=== PATIENT | female | born 1960 | race Two or more races ===

== ENCOUNTER 2019-12-07 11:15 | Outpatient (CLI) | payer OTHER, SELFPAY ==
--- NOTE | ~2019-12-07 | XR_ITS ---
EXAMINATION: XR chest 2V DATE: 12/07/2019 11:41 INDICATION: Cough. Right rib pain. TECHNIQUE: Frontal and lateral views of the chest were obtained. COMPARISON: None. FINDINGS: There is mild atelectasis in left lower lung zone. No pleural effusion or pneumothorax. The heart size is normal. IMPRESSION: 1. Mild atelectasis in left lower lung zone. Reviewed, dictated and finalized at location A. HMALLOW RUNNER
== END 2019-12-07 11:16 | disposition home or self-care (01) ==
PROVIDERS: PCP Emergency Medicine; Visit Provider Emergency Medicine
DX: R05 Cough (principal); R07.81 Pleurodynia; R91.8 Other nonspecific abnormal finding of lung field
CPT/HCPCS: 71046

== ENCOUNTER 2020-03-05 12:03 | Outpatient (CLI) | payer OTHER, SELFPAY ==
--- NOTE | ~2020-03-05 | XR_ITS ---
EXAMINATION: XR thoracic spine 3V EXAM DATE: 03/05/2020 12:52 INDICATION: Upper back pain. TECHNIQUE: Frontal and lateral projections of the thoracic spine as well as lateral swimmers projecti on of the upper thoracic spine for interpretation. There is no prior study for comparison. FINDINGS: There is minimal thoracic disc disease. No endplate erosive change. The vertebral bodies a re aligned in the AP dimension. Vertebral body and disc heights are well-maintained. Paraspinal soft tissue is unremarkable. Minimal thoracolumbar curvature, could be positional or scoliosis. IMPRESSION: Minimal lumbar spondylosis. Reviewed, dictated and finalized at location A. IMPRESSION: Minimal lumbar spondylosis.
[2020-03-05 13:32] LABS: Hematocrit 43.1 % (37.0-47.0); Hemoglobin 14.4 g/dL (12.0-15.0); Mean Corpuscular HGB Conc 33.4 g/dl (32-36); Mean Corpuscular Hemoglobin 30.3 pg (26-34); Mean Corpuscular Volume 90.5 fl (80-100); Mean Platelet Volume 11.8 fl (7.4-10.4); Platelet Count Result 207 k/mm3 (150-375); Red Blood Count 4.76 M/mm3 (4.2-5.4); Red Cell Distribution Width 12.5 % (11.5-14.5); White Blood Count 4.7 K/mm3 (4.5-10.0)
[2020-03-05 13:45] LABS: Add Urine Microscopic? YES; Appearance Urine Clear (Clear); Bilirubin Urine Negative (Negative); Blood Urine 1+ (Negative); Color Urine Straw (Yellow); Glucose Urine UA Negative (Negative); Ketones Urine Negative (Negative); Leukocyte Esterase Ur Negative LEU/UL (NEGATIVE); Mucus Urine Rare /lpf; Nitrate Urine Negative (Negative); Protein Urine Negative (Negative); Squamous Epithelial Cell Urine Few /hpf (Few); Urobilinogen Urine Negative mg/dL (<2.0); WBC Urine 0-3 /hpf (0-3)
[2020-03-05 15:34] LABS: Free T4 Free Thyroxine 0.86 ng/mL (0.78-2.19)
== END 2020-03-05 12:04 | disposition home or self-care (01) ==
LOC: ANHIMG 12:22
PROVIDERS: PCP Emergency Medicine; Visit Provider Emergency Medicine
DX: R31.9 Hematuria, unspecified (principal); M54.6 Pain in thoracic spine; F41.9 Anxiety disorder, unspecified; M47.816 Spondylosis without myelopathy or radiculopathy, lumbar region
CPT/HCPCS: 36415; 72072; 81001; 82306; 84439; 84443; 85027; 88104; 88108

== ENCOUNTER 2020-03-08 09:14 | Outpatient (CLI) | payer OTHER, SELFPAY ==
--- NOTE | ~2020-03-08 | MM_ITS ---
EXAMINATION: MM screening [place] BI w [place] HISTORY: Screening mammogram TECHNIQUE: Craniocaudal and mediolateral oblique 3-D tomosynthesis images were obtained and synthetic 2-D images were generated. CAD analysis was submitted and interpreted. COMPARISON: No prior mammogram is available for comparison at this institution. BREAST PARENCHYMAL COMPOSITION: FINDINGS: There is no evidence of suspicious mass, calcification, or architectural distortion to sugg est malignancy in either breast. There has been no suspicious interval change. IMPRESSION: 1. No mammographic evidence of malignancy. 2. Recommend routine screening mammography in one year. BI-RADS Category 1: Negative Reviewed, dictated and finalized at location A.
== END 2020-03-08 09:15 | disposition home or self-care (01) ==
LOC: ANHIMG 09:17
PROVIDERS: PCP Emergency Medicine; Visit Provider Emergency Medicine
DX: Z12.31 Encounter for screening mammogram for malignant neoplasm of breast (principal)
CPT/HCPCS: 77063; 77067

== ENCOUNTER 2020-04-16 14:20 | Outpatient (CLI) | payer OTHER, SELFPAY ==
--- NOTE | ~2020-04-16 | US_ITS ---
EXAMINATION: US renal BI EXAM DATE: 04/16/2020 15:12 INDICATION: Microscopic hematuria. TECHNIQUE: Multiple grayscale and Doppler images of the kidneys were obtained (by a technologist who performed the scan) and subsequently reviewed. There is no prior study for comparison. FINDINGS: Right kidney: There is normal contour and echogenicity. It measures 10.5 x 5.0 x 5.1 centimeters. T here are no focal renal lesions identified. There is no hydronephrosis. Left kidney: There is normal contour and echogenicity. It measures 12.2 x 5.0 x 5.7 centimeters. Th ere are no focal renal lesions identified. There is mild left hydronephrosis. Bladder unremarkable. Bilateral ureteral jets confirmed excluding ureteral obstruction. IMPRESSION: Mild left hydronephrosis. Reviewed, dictated and finalized at location B. IMPRESSION: Mild left hydronephrosis.
== END 2020-04-16 14:21 | disposition home or self-care (01) ==
PROVIDERS: PCP Emergency Medicine; Visit Provider Emergency Medicine
DX: R31.29 Other microscopic hematuria (principal); N13.30 Unspecified hydronephrosis
CPT/HCPCS: 76775

== ENCOUNTER 2020-04-25 01:46 | Emergency (ER) | payer OTHER, SELFPAY ==
--- NOTE | ~2020-04-25 | CT_ITS ---
EXAMINATION: CT abdomen pelvis w con DATE: 04/25/2020 02:47 INDICATION: Left flank pain. Left upper abdominal pain. TECHNIQUE: Computed tomography (CT) of the abdomen and pelvis was performed with 100 mL Omnipaque-350 intravenous contrast. Automated exposure control and iterative reconstruction technique were employe d. The dose-length product was 1135.29 mGy-cm. COMPARISON: None FINDINGS: Dependent atelectasis in the bilateral lower lobes. Cardiomegaly. No pericardial or pleural effusion. Small sliding-type hiatal hernia. Diffuse hepatic steatosis. Gallbladder, spleen, pancreas and bilat eral adrenal glands are normal. Lobular fluid density structures in the bilateral renal román and favo r peripelvic cysts over hydronephrosis. Symmetric renal parenchymal enhancement with no evident uroli thiasis or hydronephrosis. Appendix is normal. No abnormal bowel wall thickening or obstruction. Ther e are a few scattered colonic diverticula without adjacent inflammatory change to suggest diverticuli tis. 1.4 cm thin-walled macroscopic fat attenuation lesion along the sigmoid colon which could repres ent a small lipoma, epiploic appendage or small focus of fat necrosis, all likely chronic given the a bsence of surrounding inflammatory stranding. Decompressed bladder, anteverted uterus and bilateral a dnexa are unremarkable. Mild thoracolumbar levocurvature with mild spondylosis. Bilateral L5 pars int erarticularis defects with 4 mm retrolisthesis L5 on S1. IMPRESSION: 1. Fluid density structures at the bilateral renal román and favor peripelvic cysts over hydronephrosi s. No acute intra-abdominal/pelvic process. 2. Small sliding-type hiatal hernia. 3. Mild cardiomegaly. 4. Diffuse hepatic steatosis. Reviewed, dictated and finalized at location A. IMPRESSION: 1. Fluid density structures at the bilateral renal román and favor peripelvic cy sts over hydronephrosis. No acute intra-abdominal/pelvic process. 2. Small sliding-type hiatal hernia. 3. Mild cardiomegaly. 4. Diffuse hepatic steatosis.
[2020-04-25 01:50] VITALS: BP 152/110; PULSE 68; RESP 20; TEMP 35.9; O2SAT 100
--- NOTE | 2020-04-25 01:52 | ED.FEMALEGU ---
HPI - Female Genitourinary General Chief complaint: Urogenital-Female Stated complaint: Flank Pain Time Seen by Provider: 04/25/20 01:51 Source: patient and family Mode of arrival: ambulatory Limitations: language barrier (Daughter acting as application processor) History of Present Illness HPI Narrative: Patient is a 60 year-old female who presents for evaluation of left-sided abdominal pain and left flank pain. Patient has had 3 days of worsening dysuria, left flank pain, described as sharp, aching in nature. No chest pain, shortness of breath or cough. No vaginal bleeding or discharge. No nausea or vomiting. Patient denies fever or chills. Patient has no medical problems no history of surgeries. No known history of kidney stones. No recent falls or trauma. Related Data Allergies Allergy/AdvReac Type Severity Reaction Status Date / Time No Known Allergies Allergy Verified 04/25/20 03:47 Review of Systems Review of Systems: Narrative: CONSTITUTIONAL: Denies fever, chills ENT: Denies rhinorrhea, congestion, sore throat CARDIOVASCULAR: Denies chest pain RESPIRATORY: Denies cough or dyspnea. GASTROINTESTINAL: Reports left upper quadrant abdominal pain, denies nausea, vomiting or diarrhea GENITOURINARY: Reports dysuria, denies hematuria SKIN: Denies rash or itching. MUSCULOSKELETAL: Reports left flank pain NEUROLOGIC: Denies headache, numbness, or weakness. [facility] Past Medical History Medical History (Updated 04/25/20 @ 03:47 by Kyara Garner MD) No pertinent past medical history Surgical History Surgical History (Updated 04/25/20 @ 02:09 by Kyara Garner MD) No pertinent past surgical history Social History Social History (Updated 04/25/20 @ 02:09 by Kyara Garner MD) Smoking status: Never smoker Alcohol intake: never Substance use: never Living arrangements: with family Gender identity (if verbalized by the patient): Female Exam Narrative: Exam Narrative: GENERAL: Awake, alert, conversant, uncomfortable. HEAD: Normocephalic, atraumatic. EYES: PERRLA and EOMI. ENT: Nares clear, no rhinorrhea or epistaxis. Mucous membranes moist. NECK: Supple. CHEST: No respiratory distress, breathing even and non labored HEART: Regular rate, sinus rhythm ABDOMEN:Non distended, non tender, left upper quadrant tenderness Thorax: Left flank tenderness EXTREMITIES: Normal range of motion. No edema. SKIN: Warm, dry, no rash. NEURO:No focal deficits. Alert and oriented x3 Course Vital Signs Vital signs: Vital Signs Temperature 35.9 C L 04/25/20 01:50 Pulse Rate 68 04/25/20 01:50 Respiratory Rate 04/25/20 01:50 Blood Pressure 152/110 H 04/25/20 01:50 Pulse Oximetry 100 04/25/20 01:50 Temperature 35.9 C L 04/25/20 01:50 Pulse Rate 68 04/25/20 01:50 Respiratory Rate 04/25/20 01:50 Blood Pressure 152/110 H 04/25/20 01:50 Pulse Oximetry 100 04/25/20 01:50 MDM - Female Genitourinary MDM Narrative Medical decision making narrative: Patient presented for evaluation of abdominal pain and left flank pain. Absolutely reporting no chest pain, shortness of breath, pleuritic type pain. No rash or indications of shingles. No neurological deficits to be suggestive of a spinal abnormality. Patient is afebrile without severe infectious type symptoms. Laboratory work-up is reassuring. No severe leukocytosis. No indications of a urinary tract infection. No acute kidney injury. CT scan shows no acute intra-abdominal abnormality such as nephrolithiasis. No findings of pyelonephritis or renal abscess. Patient does have very mild hydronephrosis and possible concern for renal cyst. At this point, does not appear to be emergent etiology, and patient's pain is controlled at the time of reassessment. Patient's abdomen is soft without significant pain or signs of surgical abdomen on serial exams. Lab and imaging evaluations are reviewed and patient is felt to be a reasonable candidate for
[2020-04-25 02:13] LABS: Basophils Percent Auto 0.5 % (0.2-1.2); Eosinophils Absolute Auto 0.1 K/mm3 (0-0.3); Eosinophils Percent Auto 1.4 % (0-4.4); Hematocrit 43.7 % (37.0-47.0); Hemoglobin 14.5 g/dL (12.0-15.0); Immature Granulocyte Absolute 0.02 K/mm3 (0.00-0.031); Immature Granulocyte Percent A 0.3 % (0-0.5); Lymphocytes Absolute Auto 3.33 K/mm3 (0.9-3.2); Lymphocytes Percent Auto 43.8 % (18.3-44.2); Mean Corpuscular HGB Conc 33.2 g/dl (32-36); Mean Corpuscular Hemoglobin 29.6 pg (26-34); Mean Corpuscular Volume 89.2 fl (80-100); Mean Platelet Volume 11.5 fl (7.4-10.4); Monocytes Absolute Auto 0.5 K/mm3 (0.1-0.6); Monocytes Percent Auto 5.9 % (2.6-8.5); Neutrophils Absolute Auto 3.7 K/mm3 (1.3-6.7); Neutrophils Percent Auto 48.1 % (45.5-73.1); Platelet Count Result 222 k/mm3 (150-375); Red Cell Distribution Width 12.2 % (11.5-14.5); White Blood Count 7.6 K/mm3 (4.5-10.0)
[2020-04-25] MEDS: SODIUM CHLORIDE 0.9% IV 1,000 ML 999 ML IV CONT (02:19)
[2020-04-25] MEDS: MORPHINE SULFATE 4 MG/ML INJ IV PUSH (02:19)
[2020-04-25] MEDS: ONDANSETRON INJ 4 MG/2 ML VIAL IV PUSH (02:19)
[2020-04-25 02:24] LABS: Blood Urea Nitrogen 19 mg/dL (7-17); Estimated Glomerular Filt Rate > 60; Glucose 104 mg/dL (65-105)
[2020-04-25 02:25] LABS: Calcium 9.3 mg/dL (8.4-10.2); Carbon Dioxide 24 mmol/L (22-30); Potassium 4.1 mmol/L (3.4-5.0); Sodium 137 mmol/L (137-145)
[2020-04-25 02:26] LABS: Add Urine Microscopic? YES; Appearance Urine Clear (Clear); Bacteria Urine Trace /hpf; Bilirubin Urine Negative (Negative); Blood Urine Negative (Negative); Color Urine Yellow (Yellow); Glucose Urine UA Negative (Negative); Ketones Urine Negative (Negative); Leukocyte Esterase Ur Trace LEU/UL (Negative); Mucus Urine Rare /lpf; Nitrate Urine Negative (Negative); Protein Urine Negative (Negative); RBC Urine 0-2 /hpf (0-2); Squamous Epithelial Cell Urine Occasional /hpf (Few); Urobilinogen Urine Negative mg/dL (<2.0)
[2020-04-25 02:35] LABS: Alanine Aminotransferase 25 U/L (4-35); Albumin Level 4.4 g/dL (3.5-5.1); Alkaline Phosphatase 104 U/L (38-126); Aspartate Amino Transferase 28 U/L (14-36); Bilirubin,Total 0.5 mg/dL (0.2-1.3); Chloride 106 mmol/L (98-107); Lipase 99 U/L (23-300)
[2020-04-25 03:05] VITALS: BP 138/82; PULSE 56; RESP 18; O2SAT 100
[2020-04-25 03:49] VITALS: BP 149/90; PULSE 50; RESP 18; O2SAT 100
[2020-04-25 04:01] VITALS: BP 137/88; PULSE 55; RESP 19; TEMP 36.8; O2SAT 100
== END 2020-04-25 04:03 | disposition home or self-care (01) ==
PROVIDERS: Emergency Provider Emergency Medicine; PCP Emergency Medicine
DX: R10.9 Unspecified abdominal pain (principal)
CPT/HCPCS: 36415; 74177; 80053; 81001; 83690; 85025; 96361; 96374; 96375; 99284; J2270; J2405; J7030; Q9967

== ENCOUNTER 2020-04-27 18:07 | Observation (INO) | payer OTHER, SELFPAY ==
--- NOTE | ~2020-04-27 | XR_ITS ---
XR abdomen/kub 1V DATE: 04/28/2020 12:25 INDICATION: Assessment for residual contrast material in the kidneys TECHNIQUE: Portable supine AP view COMPARISON: 04/27/2020 CT abdomen pelvis with IV contrast material FINDINGS: There is no residual contrast material evident in the urinary tracts. Nonspecific bowel gas pattern without evidence of obstruction. The psoas shadows are intact. No visceromegaly is evident. IMPRESSION: No residual contrast material in the urinary tracts Reviewed, dictated and finalized at Location A. Reviewed, dictated and finalized at location A.
--- NOTE | ~2020-04-27 | CT_ITS ---
EXAMINATION: CT abdomen pelvis w con DATE: 04/27/2020 22:09 INDICATION: Abdominal pain TECHNIQUE: Computed tomography (CT) of the abdomen and pelvis was performed with 100 mL Omnipaque-350 intravenous contrast. Automated exposure control and iterative reconstruction technique were employe d. The dose-length product was 1155.55 mGy-cm. COMPARISON: 04/25/2020 FINDINGS: Mild discoid atelectasis at the lingula and mild dependent atelectasis in the bilateral lower lobes. Cardiomegaly. No pericardial or pleural effusion. Small sliding-type hiatal hernia. Diffuse hepatic s teatosis with more focal fat at the ligamentum teres. Gallbladder, spleen, pancreas and bilateral adr enal glands are normal. Symmetric renal parenchymal enhancement with multiple bilateral peripelvic cy sts. Bowels including the appendix are normal. Again seen is a 1.4 cm thin-walled macroscopic fat att enuation lesion/inflammatory stranding along the sigmoid colon which could represent a small lipoma, epiploic appendage or small focus of fat necrosis. Bladder, anteverted uterus and bilateral adnexa ar e unremarkable. Small amount of ascites in the cul-de-sac. Small bilateral fat-containing inguinal he rnias. No pathologically enlarged abdominal or pelvic lymphadenopathy. Bilateral L5 pars intra-articu lar is defects with 4 mm anterolisthesis L5 on S1. IMPRESSION: 1. Small amount of ascites in the cul-de-sac. No other acute intra-abdominal/pelvic process. 2. Small sliding-type hiatal hernia. 3. Cardiomegaly. 4. Diffuse hepatic steatosis. 5. Small bilateral fat-containing inguinal hernias. Reviewed, dictated and finalized at location A. IMPRESSION: 1. Small amount of ascites in the cul-de-sac. No other acute intra-abdominal/pe lvic process. 2. Small sliding-type hiatal hernia. 3. Cardiomegaly. 4. Diffuse hepatic steatosis. 5. Small bilateral fat-containing inguinal hernias.
--- NOTE | ~2020-04-27 | CT_ITS ---
EXAMINATION: CT abdomen pelvis wo con DATE: 04/29/2020 17:38 INDICATION: Left flank pain. Kidney stones. TECHNIQUE: Computed tomography (CT) of the abdomen and pelvis was performed without intravenous contr ast. The dose-length product was 917.42 mGy-cm. Automated exposure control and iterative reconstructi on technique were employed. COMPARISON: CT dated 04/27/2020 FINDINGS: Heart size normal. Small pleural effusions. Fatty alteration of the liver. There is hyperde nse material in the gallbladder, likely carious excretion of contrast. There are parapelvic cyst in t he left kidney. The liver, spleen, pancreas, adrenal glands and right kidney are unremarkable. No renal/ureteral ston es. There are fat-containing inguinal hernias. Nonobstructive bowel gas pattern. No abnormal pelvic m asses or fluid collections. Small fat-containing umbilical hernia. Bilateral L5 pars interarticularis defects with grade 1 spondylolisthesis. No abdominal or pelvic lymphadenopathy. 1.4 cm thin-walled m acroscopic fat attenuation lesion contiguous with the sigmoid colon which could represent a small lip latonya or epiploic appendage. IMPRESSION: 1. No acute abdominal abnormality. 2: Small pleural effusions. Reviewed, dictated and finalized at location A.
[2020-04-27 18:18] VITALS: PULSE 72; RESP 20; TEMP 36.6; O2SAT 100
--- NOTE | 2020-04-27 19:19 | ECG_ITS ---
Measurements Intervals [place] Rate: 53 P: 20 MS: 188 QRS: -24 QRSD: 114 T: 15 QT: 385 QTc: 364 Interpretive Statements SINUS BRADYCARDIA INTRAVENTRICULAR CONDUCTION DELAY DELAYED PRECORDIAL R/S TRANSITION VOLTAGE CRITERIA FOR LVH NONSPECIFIC T-WAVE ABNORMALITY- ANTEROLAT/INF LEADS BORDERLINE ECG Electronically Signed On 04-28-2020 6:55:16 CDT by Herrera Rodriguez D.O.
--- NOTE | 2020-04-27 19:19 | ED.BACK ---
HPI - Back Pain/Injury General Chief Complaint: Back Pain/Injury Stated Complaint: left flank pain Time Seen by Provider: 04/27/20 19:14 Source: RN notes reviewed and old records reviewed History of Present Illness HPI Narrative: Patient presents emergency department from home for flank pain. Patient states she has been having pain for the past 5 days. The pain is located left flank and radiates around the left upper and lower abdomen. Pain is described as sharp and stabbing. Notes mild associated nausea. Denies any fevers or chills chest pain shortness of breath vomiting diarrhea or any other symptoms. The patient has been seen in our emergency department 2 days ago as well as [facility] yesterday and [facility] today with negative work-ups patient has been taking Percocet at home with minimal relief Related Data Allergies Allergy/AdvReac Type Severity Reaction Status Date / Time No Known Allergies Allergy Verified 04/25/20 03:47 Review of Systems Review of Systems: Narrative: Gen.: Denies fevers or chills ENT: Denies congestion Respiratory: Denies shortness of breath or cough CV: Denies chest pain or palpitations GI: HPI denies burning, urgency, frequency or hematuria Musculoskeletal: Denies back pain or muscle pain Neuro: Denies numbness, tingling, weakness or focal weakness Skin: Denies rash Except as documented, all other systems reviewed and negative [facility] Past Medical History Medical History No pertinent past medical history Surgical History Surgical History (Updated 04/25/20 @ 02:09 by Kyara Garner MD) No pertinent past surgical history Social History Social History Smoking status: Never smoker Alcohol intake: never Substance use: never Gender identity (if verbalized by the patient): Female Exam Narrative: Exam Narrative: APPEARANCE: No acute distress, nontoxic, resting in bed HEENT: Normocephalic, atraumatic, OMM RESPIRATORY: No respiratory distress, clear to auscultation bilaterally with no rhonchi wheezing or rales CARDIOVASCULAR: RRR s murmur ABDOMINAL: Soft, nondistended, tender palpation left upper quadrant left lower quadrant, no tenderness in right upper quadrant right lower quadrant, no rebound or guarding, left flank tenderness no overlying rash MUSCULOSKELETAl: Moves all extremities. No clubbing, cyanosis or edema. NEURO: Awake and alert. Following commands, speech normal, no focal deficits SKIN:: Warm, dry. Normal Color PSYCHIATRIC: Normal affect/mood Course Course Emergency Course: Patient continues to have pain in the emergency department pain was improved with morphine and return given GI cocktail with no resolution additional morphine given. This time with 4 ED visits over the past 5 days will admit for further work-up. On repeat exam continues to remain tender in the left upper and lower quadrant Dr. Thompson presentation work-up. Agrees with admission at this time request patient remain n.p.o. Discussed with patient and family results of workup and diagnosis. Discussed need for admission. Patient and family understand and agree to current treatment plan Vital Signs Vital signs: Vital Signs Temperature 97.9 F 04/27/20 18:18 Pulse Rate 72 04/27/20 18:18 Respiratory Rate 20 04/27/20 18:18 Pulse Oximetry 100 04/27/20 18:18 Temperature 97.9 F 04/27/20 18:18 Pulse Rate 96 04/27/20 21:40 Respiratory Rate 20 04/27/20 21:40 Blood Pressure 158/87 H 04/27/20 21:40 Pulse Oximetry 99 04/27/20 21:40 MDM - Back Pain/Injury Lab Data Result diagrams: 04/27/20 19:27 04/27/20 19:27 Labs: Lab Results 04/27/20 04/27/20 04/27/20 Range/Units 19:27 19:27 20:46 WBC 6.5 (4.5-10.0) K/mm3 RBC 4.37 (4.2-5.4) M/mm3 Hgb 13.0 (12.0-15.0) g/dL Hct 39.4 (37.0-47.0
[2020-04-27 19:33] LABS: Basophils Percent Auto 0.3 % (0.2-1.2); Eosinophils Absolute Auto 0.1 K/mm3 (0-0.3); Eosinophils Percent Auto 0.8 % (0-4.4); Hematocrit 39.4 % (37.0-47.0); Immature Granulocyte Absolute 0.01 K/mm3 (0.00-0.031); Immature Granulocyte Percent A 0.2 % (0-0.5); Lymphocytes Absolute Auto 1.86 K/mm3 (0.9-3.2); Lymphocytes Percent Auto 28.4 % (18.3-44.2); Mean Corpuscular Hemoglobin 29.7 pg (26-34); Mean Corpuscular Volume 90.2 fl (80-100); Mean Platelet Volume 11.1 fl (7.4-10.4); Monocytes Absolute Auto 0.5 K/mm3 (0.1-0.6); Monocytes Percent Auto 7.3 % (2.6-8.5); Neutrophils Absolute Auto 4.1 K/mm3 (1.3-6.7); Platelet Count Result 180 k/mm3 (150-375); Red Blood Count 4.37 M/mm3 (4.2-5.4); White Blood Count 6.5 K/mm3 (4.5-10.0)
[2020-04-27] MEDS: MORPHINE SULFATE 4 MG/ML INJ IV PUSH (19:35)
[2020-04-27] MEDS: SODIUM CHLORIDE 0.9% IV 1,000 ML 999 ML IV CONT (19:35)
[2020-04-27 19:45] LABS: Alanine Aminotransferase 21 U/L (4-35); Alkaline Phosphatase 63 U/L (38-126); Aspartate Amino Transferase 22 U/L (14-36); Bilirubin,Total 0.5 mg/dL (0.2-1.3); Blood Urea Nitrogen 11 mg/dL (7-17); Calcium 9.4 mg/dL (8.4-10.2); Carbon Dioxide 26 mmol/L (22-30); Chloride 104 mmol/L (98-107); Estimated CRCL calculation 84 ml/min; Estimated Glomerular Filt Rate > 60; Glucose 134 mg/dL (65-105); Lipase 57 U/L (23-300); Potassium 3.5 mmol/L (3.4-5.0); Sodium 135 mmol/L (137-145)
[2020-04-27 20:56] LABS: Add Urine Microscopic? YES; Appearance Urine Clear (Clear); Bacteria Urine Trace /hpf; Bilirubin Urine Negative (Negative); Blood Urine 1+ (Negative); Color Urine Straw (Yellow); Glucose Urine UA Negative (Negative); Ketones Urine Negative (Negative); Leukocyte Esterase Ur Trace LEU/UL (Negative); Nitrate Urine Negative (Negative); Protein Urine Negative (Negative); RBC Urine 0-2 /hpf (0-2); Squamous Epithelial Cell Urine Occasional /hpf (Few); Urobilinogen Urine Negative mg/dL (<2.0); WBC Urine 0-3 /hpf
[2020-04-27 21:40] VITALS: BP 158/87; PULSE 96; RESP 20; O2SAT 99
[2020-04-27] MEDS: MORPHINE SULFATE 2 MG/ML INJ IV PUSH (23:27)
[2020-04-27 23:58] VITALS: BP 147/91; PULSE 56; O2SAT 98
[2020-04-28 00:19] VITALS: BP 144/87; PULSE 89; RESP 15; O2SAT 97
--- NOTE | 2020-04-28 00:37 | ADMGEN ---
This patient, Georgina Correa, was admitted to [address] [facility] Surg Room 300-01. Patient/family oriented to hospital policies and general routines including ID bracelet, bed and alarms, visiting hours, pain management, procedures, bathroom and other care routines, personal items, smoking policy, room service/diet, and visiting hours. Valuables list has been completed. Information on how to activate the Rapid Response Team has been discussed. Patient/Family are encouraged to report perceived risks to care and to ask questions if they do not understand what they are told or what they should do.
[2020-04-28] MEDS: MORPHINE SULFATE 4 MG/ML INJ IV PUSH ×5 (00:45→22:06)
[2020-04-28] MEDS: SODIUM CHLORIDE 0.9% IV 1,000 ML 125 ML IV CONT ×3 (00:45→18:58)
[2020-04-28 00:56] VITALS: BP 155/86; PULSE 62; RESP 16; TEMP 36.7; O2SAT 98; BMI 31.9
[2020-04-28 06:00] VITALS: BP 147/73; PULSE 55; RESP 16; TEMP 36.6; O2SAT 98
--- NOTE | 2020-04-28 06:16 | PM.IMHP ---
H&P: HPI History of Present Illness Chief complaint: Intractable abdominal pain, L. flank pain Narrative: This is a pleasant 60 year old Irish female with known past medical history significant for renal stones who presented to the hospital for a return visit for severe left flank pain radiating down to her groin as well as dysuria and suprapubic tenderness that started 6 days ago. Tonight marked the patient's 4th ER visit for the same complaint over this past week. She has been seen in our ER twice now, [facility], and [facility]. Associated symptoms include nausea. She has not had any vomiting, fevers, chills, shortness of breath, diarrhea, hematuria, rectal bleeding or LE swelling. Ultrasound performed on 04/16/2020 demonstrated mild left sided hydronephrosis. CT scan Abd/pelvis from 04/25/2020 demonstrated fluid density structures at the bilateral renal román and favor peripelvic cysts over hydronephrosis. The patient was treated with various doses of Narcotic medications and admitted to the hospital for intractable left flank pain. She has no other complaints. Review of Systems Review of Systems: All systems reviewed & are unremarkable except as noted in HPI and below PMFSH Past Medical History Medical History (Updated 04/28/20 @ 19:17 by Sam Thompson MD) No pertinent past medical history Renal stones Surgical History Surgical History No pertinent past surgical history Social History Social History Smoking status: Never smoker Alcohol intake: never Substance use: never Gender identity (if verbalized by the patient): Female Spiritual care concerns: No Comments past Family medical history is reviewed with the patient and noncontributory. Meds Home Medications and Allergies Home Medications Medication Instructions Recorded Confirmed Type oxycodone-acetaminophen 1 tablet PO Q6H PRN #9 tablet 04/25/20 04/28/20 Rx Allergies Allergy/AdvReac Type Severity Reaction Status Date / Time No Known Allergies Allergy Verified 04/25/20 03:47 Vital Signs Vital Signs - 24 hr 04/27/20 18:18 04/27/20 21:40 04/27/20 23:58 Temperature 36.6 C Pulse Rate 72 96 56 L Respiratory Rate 20 20 Blood Pressure 158/87 H 147/91 H Pulse Oximetry 100 99 98 04/28/20 00:19 04/28/20 00:56 Temperature 36.7 C Pulse Rate 89 62 Respiratory Rate 15 16 Blood Pressure 144/87 H 155/86 H Pulse Oximetry 97 98 Exam Const: General: cooperative, alert, awake and in distress moderate Nutritional Appearance: obese Orientation/consciousness: patient oriented x3 HENMT: Head: normal to inspection General nose exam: Normal external nose present Face and sinus: normal facial exam Mouth: Yes Normal oral and palatal mucosa present and Yes oropharynx normal Eyes: Pupils: Equal, round and reactive pupils present EOM: EOMs intact bilaterally Neck: Neck: supple and no JVD Thyroid: thyroid normal Lymphatic: lymphadenopathy not noted Resp: Effort & Inspection: normal respiratory effort Auscultation: clear to auscultation bilaterally Cardio: Rate: regular rate Rhythm: regular rhythm Heart sounds: no murmurs GI: Inspection: normal to inspection GI Palp: Yes abdominal tenderness (Left flank tenderness w/ palpation++ ) Auscultation: normal bowel sounds Back/Spine/Pelvis: Back: CVA tenderness (Left sided++ ) Skin: General skin exam: normal color and no rashes or lesions noted Neuro: General: patient oriented x3 Cranial nerves: Yes CN's II-XII intact bilaterally and Yes Equal, round and reactive pupils present Speech: normal speech Motor exam (neuro): 5/5 motor strength present throughout Sensory Exam: normal sensation Extrem: General: normal to inspection and no edema Psych: Mental Status: mental status grossly normal Affect: normal affect H&P: Results Labs Labs: Short CBC
[2020-04-28 06:30] LABS: Basophils Percent Auto 0.4 % (0.2-1.2); Eosinophils Absolute Auto 0.1 K/mm3 (0-0.3); Eosinophils Percent Auto 1.1 % (0-4.4); Hematocrit 39.8 % (37.0-47.0); Hemoglobin 13.1 g/dL (12.0-15.0); Immature Granulocyte Absolute 0.01 K/mm3 (0.00-0.031); Immature Granulocyte Percent A 0.2 % (0-0.5); Lymphocytes Absolute Auto 2.04 K/mm3 (0.9-3.2); Lymphocytes Percent Auto 37.2 % (18.3-44.2); Mean Corpuscular HGB Conc 32.9 g/dl (32-36); Mean Corpuscular Hemoglobin 29.6 pg (26-34); Mean Platelet Volume 11.1 fl (7.4-10.4); Monocytes Absolute Auto 0.4 K/mm3 (0.1-0.6); Neutrophils Absolute Auto 2.9 K/mm3 (1.3-6.7); Neutrophils Percent Auto 53.1 % (45.5-73.1); Platelet Count Result 182 k/mm3 (150-375); Red Blood Count 4.42 M/mm3 (4.2-5.4); Red Cell Distribution Width 12.1 % (11.5-14.5); White Blood Count 5.5 K/mm3 (4.5-10.0)
[2020-04-28 06:40] LABS: Alanine Aminotransferase 21 U/L (4-35); Albumin Level 3.9 g/dL (3.5-5.1); Alkaline Phosphatase 64 U/L (38-126); Aspartate Amino Transferase 22 U/L (14-36); Bilirubin,Total 0.5 mg/dL (0.2-1.3); Blood Urea Nitrogen 7 mg/dL (7-17); Calcium 8.9 mg/dL (8.4-10.2); Carbon Dioxide 28 mmol/L (22-30); Chloride 105 mmol/L (98-107); Estimated CRCL calculation 86 ml/min; Estimated Glomerular Filt Rate > 60; Glucose 97 mg/dL (65-105); Potassium 3.7 mmol/L (3.4-5.0); Sodium 136 mmol/L (137-145)
[2020-04-28 09:27] VITALS: BP 153/83; PULSE 56; RESP 18; TEMP 36.6; O2SAT 97
[2020-04-28 14:00] VITALS: BP 146/83; PULSE 68; RESP 16; TEMP 36.8; O2SAT 97
--- NOTE | 2020-04-28 14:12 | PM.IMPN ---
Progress Note: A&P Assessment and Plan (1) Left flank pain: Code(s): R10.9 - Unspecified abdominal pain Status: Acute Assessment and Plan: Intractable left flank pain radiating down towards her pelvis - chronic pain pt has had same pain for 20 years gets worse time to time. Pt has had 3 Ct scan with contrast of her abdomen in [address] scan recommended. Long discussion with Neice and patient regarding medical problems, no kidney stones, peripelvic cysts only. IV hydration and pain control advised, pt can follow with OB/ COLOR LABORATORY TECHNICIAN if she is concerned about ovarian cyst. Can be discharged tomorrow. (2) Dysuria: Code(s): R30.0 - Dysuria Status: Acute Assessment and Plan: May be secondary to a passed stone No uti No stone Additional Plan Subjective Date/time seen: 04/28/20 14:12 Interval history: 60 year old Irish female with known past medical history significant for renal stones who presented to the hospital for a return visit for severe left flank pain radiating down to her groin as well as dysuria and suprapubic tenderness that started 6 days ago. Pt has been to several ED, in [facility]. Pt has had 3 Ct scan with contrast of her abdomen in [address] scan recommended. Long discussion with Neice and patient regarding medical problems, no kidney stones, peripelvic cysts only. IV hydration and pain control advised, pt can follow with OB/ COLOR LABORATORY TECHNICIAN if she is concerned about ovarian cyst. Can be discharged tomorrow. Review of Systems Constitutional: Constitutional: Denies no additional constitutional complaints Cardiovascular: Cardiovascular: Denies no additional cardiovascular complaints Respiratory: Respiratory: Denies no additional respiratory complaints Genitourinary: Genitourinary: Reports flank pain Comments: Severe flank pain Neurologic: Denies system reviewed and no additional complaints, except as documented Psychiatric: Psychiatric: Reports anxiety Exam Const: General: cooperative, alert, awake and in distress moderate Nutritional Appearance: obese Orientation/consciousness: patient oriented x3 Resp: Effort & Inspection: normal respiratory effort Auscultation: clear to auscultation bilaterally Cardio: Rate: regular rate Rhythm: regular rhythm Heart sounds: no murmurs GI: Inspection: normal to inspection Auscultation: normal bowel sounds : General: Yes CVA tenderness (Left sided++ ) Back/Spine/Pelvis: Back: CVA tenderness (Left sided++ ) Skin: General skin exam: normal color and no rashes or lesions noted Neuro: General: patient oriented x3 Cranial nerves: Yes CN's II-XII intact bilaterally and Yes Equal, round and reactive pupils present Speech: normal speech Motor exam (neuro): 5/5 motor strength present throughout Sensory Exam: normal sensation Extrem: General: normal to inspection and no edema Psych: Mental Status: mental status grossly normal Affect: normal affect Objective Data Vital Signs Vital Signs: Vital Signs - 24 hr 04/27/20 18:18 04/27/20 21:40 04/27/20 23:58 Temperature 36.6 C Pulse Rate 72 96 56 L Respiratory Rate 20 20 Blood Pressure 158/87 H 147/91 H Pulse Oximetry 100 99 98 04/28/20 00:19 04/28/20 00:56 04/28/20 06:00 Temperature 36.7 C 36.6 C Pulse Rate 89 62 55 L Respiratory Rate 15 16 16 Blood Pressure 144/87 H 155/86 H 147/73 H Pulse Oximetry 97 98 98 04/28/20 09:27 Temperature 36.6 C Pulse Rate 56 L Respiratory Rate 18 Blood Pressure 153/83 H Pulse Oximetry 97 Intake/Output Intake/Output: Intake & Output 04/25/20 04/26/20 04/27/20 04/28/20 23:59 23:59 23:59 23:59 Intake Total 1000 1000 Output Total 600 Balance 1000 400 Meds/Results Medications: Active Medications Generic Name Dose Route Start Last Admin Trade Name Freq PRN Reason Stop Dose Admin Sodium Chloride 1,000 mls @ 125 mls/hr 04/27/20 23:30 04/28/20 10:56 Normal Sali
--- NOTE | 2020-04-28 17:27 | PM.CNNEP ---
Assessment and Plan Assessment and plan (1) Left flank pain: Code(s): R10.9 - Unspecified abdominal pain Status: Acute (2) Intractable abdominal pain: Code(s): R10.9 - Unspecified abdominal pain Status: Acute Assessment and Plan: . Additional Plan Georgina has persistent left flank pain without a clear etiology. The assumption, given her history, was that perhaps maybe she passed a kidney stone or she continues to pass small kidney stones that are not detectable by the imaging studies that she has had done to date. One of her family members was requesting an MRI of the abdomen but I am unclear if an MRI of the abdomen would find/discover any other pathology that a CT scan would not of already discovered. Furthermore, usually MRIs of the abdomen her done when a CT scan with IV contrast can't be done due to issues related to renal dysfunction. I did discuss the case with Dr. Johnson --I tend to agree with the plan to get records from all these previous ER visits and review all the imaging studies in general to ascertain if there is any value to any further imaging studies at this point in time. I am not entirely clear as to the etiology of this symptom as things stand. For now, I would continue supportive therapy in the form of IV fluids and pain medications until we have a better idea of what our next step should be particularly since she has had so many imaging studies done at 3 different hospitals. I will continue follow the patient with you while she remains hospitalized and make further recommendations during her hospital course. Thank you for allowing me to participate in the care this patient. History of Present Illness Reason for Consult Consult date: 04/28/20 Reason for consult: Other (left flank pain) Chief Complaint Chief complaint: Intractable abdominal pain, L. flank pain History of Present Illness Narrative: All the information I have obtained is from review of the electronic medical record and discussion with the physicians/nurses involved in her care S the patient does not speak Lao and I was unable to get the remote concrete grinder operator device to function at the time of my visit. The patient is 60 year old Kyrgy[place] female with past medical history as outlined below who presented to the [facility] ER for left flank pain. The left flank pain was described as sharp and stabbing pain that radiates down to her groin. Associated symptoms include dysuria and suprapubic tenderness (which started 6 days ago) as well as nausea but no vomiting, fevers, chills, shortness of breath, diarrhea, hematuria, rectal bleeding or LE swelling. From review of her records, this is the patient's 4th visit to an emergency room for the same issue/complaint this week. She has been seen in our ER twice, [facility], and [facility]. Recent imaging includes a renal ltrasound (04/16/2020) demonstrated mild left sided hydronephrosis. CT scan of the abd/pelvis (04/25/2020) demonstrated fluid density structures at the bilateral renal román suggesting peripelvic cysts over hydronephrosis. Given this ongoing issue/problems, the patient was admitted to the hospital for further evaluation and therapy. Renal consultation was requested due recurrent left flank pain. From review of her records, her labs indicate relative stability in her kidney function in general. The concern of course is that is there are need for further imaging studies to be done to help delineate the cause of her left flank pain which seems to be somewhat a ongoing issue now for last week. As far as I can tell, she has no other history with regard to kidney problems other than nephrolithiasis. Currently, the patient appears to be sleeping comfortably but I was informed by nursing that she just received some pain medications. [facility] Past Medical History Medical History (Updated 04/28/20 @ 06:44 by Sam Thompson MD) No pertinent past medical hist
[2020-04-28 22:00] VITALS: BP 151/79; PULSE 56; RESP 20; TEMP 37.6; O2SAT 97
[2020-04-29] MEDS: MORPHINE SULFATE 4 MG/ML INJ IV PUSH (03:42)
[2020-04-29] MEDS: SODIUM CHLORIDE 0.9% IV 1,000 ML 125 ML IV CONT ×3 (03:42→19:53)
[2020-04-29 06:00] VITALS: BP 135/81; PULSE 66; RESP 16; TEMP 36.6; O2SAT 97
--- NOTE | 2020-04-29 06:50 | WPDURCON ---
Assessment and Plan Assessment and plan (1) Intractable abdominal pain: Code(s): R10.9 - Unspecified abdominal pain Status: Acute (2) Left flank pain: Code(s): R10.9 - Unspecified abdominal pain Status: Acute Assessment and Plan: Episodic abdominal and flank pain of unclear etiology, without identifiable urological pathology No plans for intervention at this time. It is my understanding the patient is being transferred to another facility later this morning. Urology Consult Note HPI Date Seen: 04/29/20 Requesting Physician: Sam Thompson MD Primary Care Provider: Jayant Juan MD Consult Narrative Narrative: Georgina Correa is a 60 year old female without prior known urological history use had recent intractable abdominal and left flank pain of uncertain etiology. This apparently occurred without precipitating injury or strain. The pain seems to be somewhat episodic. Is described the pain in her left flank radiating to her left lower quadrant. It is not associated hematuria but there are reports of some n/v. She has undergone evaluation at [facility], [facility] and [facility]. She has had a renal ultrasound, two CT scans of the abdomen and pelvis with contrast, all of which showed no identify obstructive uropathy or other urological pathology. A KUB obtained following contrast injection shows no retained contrast, again suggesting no obstructive uropathy. Review of Systems Cardiovascular: Cardiovascular: Denies chest pain, Denies lightheadedness, Denies palpitations and Denies dyspnea Respiratory: Respiratory: Denies dyspnea Gastrointestinal: Gastrointestinal: Reports abdominal pain, Denies diarrhea, Denies nausea and Denies vomiting Genitourinary: Genitourinary: Denies hematuria and Denies dysuria Endocrine: Endocrine: Denies palpitations PMF Past Medical History Medical History No pertinent past medical history Renal stones Surgical History Surgical History No pertinent past surgical history Social History Social History Smoking status: Never smoker Alcohol intake: never Substance use: never Gender identity (if verbalized by the patient): Female Spiritual care concerns: No Meds Home Medications and Allergies Home Medications Medication Instructions Recorded Confirmed Type oxycodone-acetaminophen 1 tablet PO Q6H PRN #9 tablet 04/25/20 04/28/20 Rx Allergies Allergy/AdvReac Type Severity Reaction Status Date / Time No Known Allergies Allergy Verified 04/25/20 03:47 Vital Signs Vital Signs - 24 hr 04/28/20 09:27 04/28/20 14:00 04/28/20 22:00 Temperature 97.8 F 98.2 F 99.7 F H Pulse Rate 56 L 68 56 L Respiratory Rate 18 16 20 Blood Pressure 153/83 H 146/83 H 151/79 H Pulse Oximetry 97 97 97 04/29/20 06:00 Temperature 97.9 F Pulse Rate 66 Respiratory Rate 16 Blood Pressure 135/81 Pulse Oximetry 97 Exam Const: General: no acute distress Resp: Effort & Inspection: normal respiratory effort GI: Inspection: non-distended GI Palp: No abdominal tenderness and No Guarding due to palpation present (GI) Auscultation: normal bowel sounds Results Labs CBC & Chem 7: 04/28/20 05:13 04/28/20 05:13 Quality VTE Prophylaxis VTE prophylaxis: mechanical ordered
[2020-04-29] MEDS: LIDOCAINE 5% PATCH 1 PATCH TRANSDERM (08:16)
[2020-04-29 09:10] LABS: Hematocrit 38.6 % (37.0-47.0); Hemoglobin 12.7 g/dL (12.0-15.0); Mean Corpuscular HGB Conc 32.9 g/dl (32-36); Mean Corpuscular Hemoglobin 29.6 pg (26-34); Mean Platelet Volume 11.2 fl (7.4-10.4); Platelet Count Result 164 k/mm3 (150-375); Red Blood Count 4.29 M/mm3 (4.2-5.4); White Blood Count 4.7 K/mm3 (4.5-10.0)
[2020-04-29 09:33] LABS: Albumin Level 3.7 g/dL (3.5-5.1); Blood Urea Nitrogen 9 mg/dL (7-17); Calcium 8.7 mg/dL (8.4-10.2); Carbon Dioxide 26 mmol/L (22-30); Chloride 105 mmol/L (98-107); Estimated CRCL calculation 99 ml/min; Estimated Glomerular Filt Rate > 60; Glucose 86 mg/dL (65-105); Phosphorus 3.5 mg/dL (2.5-4.5); Potassium 3.6 mmol/L (3.4-5.0); Sodium 138 mmol/L (137-145)
[2020-04-29 14:00] VITALS: BP 148/94; PULSE 60; RESP 18; TEMP 36.7; O2SAT 98
--- NOTE | 2020-04-29 16:53 | PM.PNNEP ---
Progress Note: A&P Assessment and Plan (1) Left flank pain: Code(s): R10.9 - Unspecified abdominal pain Status: Acute Assessment and Plan: Etiology of the flank pain is unclear. Urine is clear but there is some blood. Kidney function is normal and white cell count is okay. CT scan shows small amount of ascites, sliding hiatal hernia, cardiomegaly, diffuse hepatic steatosis, and small bilateral fat containing inguinal hernias. None of this seems to explain her left flank pain. I do not see a renal parenchymal cause for her pain. There is no mass on CT with contrast x2. Possibly this is urologic: She had a renal ultrasound showing mild hydronephrosis on the left. She has some blood in the urine. Perhaps a CT scan without contrast which shows stone but usually there is no pain with the stone unless it is passing. Another possibility is that she has the shingles. she has that red spot which could be the first patch. the pain is consistent with this. We can check a CT abdomen without contrast tomorrow morning. (2) Intractable abdominal pain: Code(s): R10.9 - Unspecified abdominal pain Status: Acute Assessment and Plan: . (3) Kidney stones: Code(s): N20.0 - Calculus of kidney Status: Acute Assessment and Plan: Last kidney stone was 2 or 3 years ago. No stone seen on KUB but that is not the best test. Contrast can HIDA stones so will get CT without contrast. (4) Blood in urine: Code(s): R31.9 - Hematuria, unspecified Status: Acute Assessment and Plan: Hematuria. Possibly hypercalciuria versus kidney stones. CT shows no tumor. Long and detailed discussion with patient and her daughter who can speak Yoruba. Subjective Date/time seen: 04/29/20 16:53 Interval history: Patient is alert. She is still in quite a bit of pain. She says the pain is been this bad for about a week. It is left flank and radiates from the left costovertebral angle around to the front. There is no dysuria no fevers or chills. No bloody urine. She has a pain patch on her back. She has a past history of kidney stones but nothing for the last 2 years. Review of Systems Cardiovascular: Cardiovascular: Reports no additional cardiovascular complaints Respiratory: Respiratory: Reports no additional respiratory complaints Gastrointestinal: Gastrointestinal: Reports no additional gastrointestinal complaints Genitourinary: Genitourinary: Reports no additional female genitourinary complaints Exam Narrative: Exam Narrative: WDWN in NAD skin she has an erythematous patch which is about 4 cm by 1cm next to the patch. It does not itch or burn. No blister. head ncat lungs clear cor reg no rub abd BS+ nontender and soft ext no edema. Objective Data Vital Signs Vital Signs: Vital Signs - 24 hr 04/28/20 22:00 04/29/20 06:00 04/29/20 14:00 Temperature 37.6 C H 36.6 C 36.7 C Pulse Rate 56 L 66 60 Respiratory Rate 20 16 18 Blood Pressure 151/79 H 135/81 148/94 H Pulse Oximetry 97 97 98 Intake/Output Intake/Output: Intake & Output 04/26/20 04/27/20 04/28/20 04/29/20 23:59 23:59 23:59 23:59 Intake Total 1000 2000 2000 Output Total 1000 600 Balance 1000 1000 1400 Meds/Results Medications: Active Medications Generic Name Dose Route Start Last Admin Trade Name Freq PRN Reason Stop Dose Admin Hydrocodone Bitart/Acetaminophen 1 tab 04/28/20 14:30 [place] 5-325 Mg PO Q6H PRN Pain Rated 4-6 Sodium Chloride 1,000 mls @ 125 mls/hr 04/27/20 23:30 04/29/20 11:29 Normal Saline Iv IV CONT 125 mls/hr .Q8H TREMAINE Administration Lidocaine 1 patch 04/29/20 09:00 04/29/20 08:16 Lidoderm TRANSDERM 1 patch DAILY TREMAINE Administration Morphine Sulfate 4 mg 04/27/20 23:27 04/29/20 03:42 Morphine Sulfate Inj IV PUSH 4 mg Q4HR PRN Administration Pain Rated 7-10 Radiology Results: ITS Impressions
--- NOTE | 2020-04-29 18:41 | PM.IMPN ---
Progress Note: A&P Assessment and Plan (1) Left flank pain: Code(s): R10.9 - Unspecified abdominal pain Status: Acute Assessment and Plan: 04/29/20 18:41 Interval history: 60 year old [place]isian female with known past medical history significant for renal stones who presented to the hospital for a return visit for severe left flank pain radiating down to her groin as well as dysuria and suprapubic tenderness that started 6 days ago. Pt has been to several ED, in [facility]. Pt has had 3 Ct scan with contrast of her abdomen in [address] scan recommended. Long discussion with Neice and patient regarding medical problems, no kidney stones, peripelvic cysts only. IV hydration and pain control advised, pt can follow with OB/ PATTERN MARKER if she is concerned about ovarian cyst. Patient was seen by urology does not suspect urology problem, again today patient was seen by custom bow maker etiology still uncertain however to further evaluate patient will have CT scan abdomen without contrast to further evaluate will follow-up in the morning and further recommendation to follow Subjective Date/time seen: 04/29/20 18:41 Interval history: 60 year old Tunisian female with known past medical history significant for renal stones who presented to the hospital for a return visit for severe left flank pain radiating down to her groin as well as dysuria and suprapubic tenderness that started 6 days ago. Pt has been to several ED, in [facility]. Pt has had 3 Ct scan with contrast of her abdomen in [address] scan recommended. Long discussion with Neice and patient regarding medical problems, no kidney stones, peripelvic cysts only. IV hydration and pain control advised, pt can follow with OB/ PATTERN MARKER if she is concerned about ovarian cyst. Patient was seen by urology does not suspect urology problem, again today patient was seen by custom bow maker etiology still uncertain however to further evaluate patient will have CT scan abdomen without contrast to further evaluate will follow-up in the morning and further recommendation to follow Review of Systems Review of Systems: All systems reviewed & are unremarkable except as noted in HPI and below Exam Const: General: no acute distress and uncomfortable HENMT: General nose exam: Normal nares present Mouth: Yes moist mucous membranes Eyes: General: appearance normal, both eyes and all related structures Sclera: sclerae normal Neck: Neck: supple Resp: Effort & Inspection: normal respiratory effort Auscultation: clear to auscultation bilaterally Cardio: Rate: regular rate Rhythm: regular rhythm GI: Auscultation: normal bowel sounds Other: Patient is tender in left CVA Skin: General skin exam: normal color Neuro: Speech: normal speech Sensory Exam: normal sensation Extrem: General: normal to inspection Psych: Affect: Anxious affect present Objective Data Vital Signs Vital Signs: Vital Signs - 24 hr 04/28/20 22:00 04/29/20 06:00 04/29/20 14:00 Temperature 99.7 F H 97.9 F 98.1 F Pulse Rate 56 L 66 60 Respiratory Rate 20 16 18 Blood Pressure 151/79 H 135/81 148/94 H Pulse Oximetry 97 97 98 Intake/Output Intake/Output: Intake & Output 04/26/20 04/27/20 04/28/20 04/29/20 23:59 23:59 23:59 23:59 Intake Total 1000 2000 2000 Output Total 1000 1900 Balance 1000 1000 100 Meds/Results Medications: Active Medications Generic Name Dose Route Start Last Admin Trade Name Freq PRN Reason Stop Dose Admin Hydrocodone Bitart/Acetaminophen 1 tab 04/28/20 14:30 [place] 5-325 Mg PO Q6H PRN Pain Rated 4-6 Sodium Chloride 1,000 mls @ 125 mls/hr 04/27/20 23:30 04/29/20 11:29 Normal Saline Iv IV CONT 125 mls/hr .Q8H TREMAINE Administration Lidocaine 1 patch 04/29/20 09:00 04/29/20 08:16 Lidoderm TRANSDERM 1 patch DAILY TREMAINE Administration Morphine Sulfate 4 mg 04/27/20 23:27 0706
[2020-04-29 22:00] VITALS: BP 146/94; PULSE 71; RESP 16; TEMP 36.8; O2SAT 97
[2020-04-30] MEDS: SODIUM CHLORIDE 0.9% IV 1,000 ML 125 ML IV CONT (03:52)
[2020-04-30 06:00] VITALS: BP 151/96; PULSE 58; RESP 16; TEMP 36.9; O2SAT 99
[2020-04-30 06:44] LABS: Albumin Level 3.7 g/dL (3.5-5.1); Blood Urea Nitrogen 10 mg/dL (7-17); Calcium 8.9 mg/dL (8.4-10.2); Carbon Dioxide 23 mmol/L (22-30); Chloride 105 mmol/L (98-107); Estimated CRCL calculation 99 ml/min; Estimated Glomerular Filt Rate > 60; Glucose 77 mg/dL (65-105); Phosphorus 3.4 mg/dL (2.5-4.5); Potassium 3.6 mmol/L (3.4-5.0); Sodium 135 mmol/L (137-145)
[2020-04-30] MEDS: LIDOCAINE 5% PATCH 1 PATCH TRANSDERM (08:48)
--- NOTE | 2020-04-30 09:21 | PM.PNNEP ---
Progress Note: A&P Assessment and Plan (1) Left flank pain: Code(s): R10.9 - Unspecified abdominal pain Status: Acute Assessment and Plan: Etiology of the flank pain is unclear. Urine is clear but there is some blood. Kidney function is normal and white cell count is okay. No sign of a infection. CT scan shows small amount of ascites, sliding hiatal hernia, cardiomegaly, diffuse hepatic steatosis, and small bilateral fat containing inguinal hernias. None of this seems to explain her left flank pain. CT without contrast shows no stones. It does show parapelvic cyst in the left kidney which would not cause her pain. That erythematous spot has not progressed so it does not look like she has the shingles. It is unclear how the hydronephrosis may be related to her pain. Or if it is hydronephrosis at all and not just the parapelvic cysts noted on CT. I will leave remainder evaluation to urology. (2) Intractable abdominal pain: Code(s): R10.9 - Unspecified abdominal pain Status: Acute Assessment and Plan: . (3) Kidney stones: Code(s): N20.0 - Calculus of kidney Status: Acute Assessment and Plan: No kidney stone seen on CT. (4) Blood in urine: Code(s): R31.9 - Hematuria, unspecified Status: Acute Assessment and Plan: Hematuria. Possibly hypercalciuria? Some bladder issue? CT with contrast shows no tumor. Subjective Date/time seen: 04/30/20 09:21 Interval history: Patient is alert. She is still in quite a bit of pain. Seems more comfortable. Exam Narrative: Exam Narrative: WDWN in NAD skin erythematous patches exactly same as it was yesterday. Still no blisters. head ncat lungs clear cor reg no rub abd BS+ nontender and soft ext no edema. Objective Data Vital Signs Vital Signs: Vital Signs - 24 hr 04/29/20 14:00 04/29/20 22:00 04/30/20 06:00 Temperature 36.7 C 36.8 C 36.9 C Pulse Rate 60 71 58 L Respiratory Rate 18 16 16 Blood Pressure 148/94 H 146/94 H 151/96 H Pulse Oximetry 98 97 99 Intake/Output Intake/Output: Intake & Output 04/27/20 04/28/20 04/29/20 04/30/20 23:59 23:59 23:59 23:59 Intake Total 1000 2000 3000 1000 Output Total 1000 1900 750 Balance 1000 1000 1100 250 Meds/Results Medications: Active Medications Generic Name Dose Route Start Last Admin Trade Name Freq PRN Reason Stop Dose Admin Hydrocodone Bitart/Acetaminophen 1 tab 04/28/20 14:30 04/30/20 06:18 [place] 5-325 Mg PO 1 tab Q6H PRN Administration Pain Rated 4-6 Sodium Chloride 1,000 mls @ 125 mls/hr 04/27/20 23:30 04/30/20 06:21 Normal Saline Iv IV CONT 125 mls/hr .Q8H TREMAINE Infusion Lidocaine 1 patch 04/29/20 09:00 04/30/20 08:48 Lidoderm TRANSDERM 1 patch DAILY TREMAINE Administration Morphine Sulfate 4 mg 04/27/20 23:27 04/29/20 03:42 Morphine Sulfate Inj IV PUSH 4 mg Q4HR PRN Administration Pain Rated 7-10 Radiology Results: ITS Impressions Abdomen X-Ray 04/28/20 14:36 IMPRESSION: No residual contrast material in the urinary tracts Abdomen/Pelvis CT 04/29/20 17:40 IMPRESSION: 1. No acute abdominal abnormality. 2: Small pleural effusions. Labs Labs: Laboratory Results - last 24 hr 04/29/20 04/30/20 08:35 05:52 Sodium 138 135 L Potassium 3.6 3.6 Chloride 105 105 Carbon Dioxide 26 23 BUN 9 10 Creatinine 0.60 L 0.60 L Estim Creat Clear Calc 99 99 Estimated GFR > 60 > 60 Glucose 86 77 Calcium 8.7 8.9 Phosphorus 3.5 3.4 Albumin 3.7 3.7 Quality VTE Prophylaxis VTE prophylaxis: mechanical ordered
--- NOTE | 2020-04-30 12:04 | PM.DS ---
DS: Admitting Diagnosis Admitting Diagnosis Admitting Diagnosis: Unspecified abdominal pain DS: Discharge Diagnosis Discharge Diagnosis (1) Left flank pain: Code(s): R10.9 - Unspecified abdominal pain Status: Acute Assessment and Plan: 04/29/20 18:41 Interval history: 60 year old [place] female with known past medical history significant for renal stones who presented to the hospital for a return visit for severe left flank pain radiating down to her groin as well as dysuria and suprapubic tenderness that started 6 days ago. Pt has been to several ED, in [facility] and [facility]. Pt has had 3 Ct scan with contrast of her abdomen in [address] scan recommended. Long discussion with Neice and patient regarding medical problems, no kidney stones, peripelvic cysts only. IV hydration and pain control advised, pt can follow with OB/ DOCUMENTATION LIAISON if she is concerned about ovarian cyst. Patient was seen by urology does not suspect urology problem, again today patient was seen by nursing department chairperson etiology still uncertain however to further evaluate patient will have CT scan abdomen without contrast to further evaluate will follow-up in the morning and further recommendation to follow DS: Summary Hospital Course Reason for hospitalization: This is a pleasant 60 year old [place] female with known past medical history significant for renal stones who presented to the hospital for a return visit for severe left flank pain radiating down to her groin as well as dysuria and suprapubic tenderness that started 6 days ago. Tonight marked the patient's 4th ER visit for the same complaint over this past week. She has been seen in our ER twice now, [facility], and [facility]. Associated symptoms include nausea. She has not had any vomiting, fevers, chills, shortness of breath, diarrhea, hematuria, rectal bleeding or LE swelling. Ultrasound performed on 04/16/2020 demonstrated mild left sided hydronephrosis. CT scan Abd/pelvis from 04/25/2020 demonstrated fluid density structures at the bilateral renal román and favor peripelvic cysts over hydronephrosis. The patient was treated with various doses of Narcotic medications and admitted to the hospital for intractable left flank pain. She has no other complaints. Hospital Course: 04/29/20 18:41 Interval history: 60 year old [place] female with known past medical history significant for renal stones who presented to the hospital for a return visit for severe left flank pain radiating down to her groin as well as dysuria and suprapubic tenderness that started 6 days ago. Pt has been to several ED, in [facility]. Pt has had 3 Ct scan with contrast of her abdomen in [address] scan recommended. Long discussion with Neice and patient regarding medical problems, no kidney stones, peripelvic cysts only. IV hydration and pain control advised, pt can follow with OB/ DOCUMENTATION LIAISON if she is concerned about ovarian cyst. Patient was seen by urology does not suspect urology problem, again today patient was seen by nursing department chairperson etiology still uncertain however to further evaluate patient will have CT scan abdomen without contrast to further evaluate will follow-up in the morning and further recommendation to follow, today CT scan did not show any acute pathology attributing to her abdominal, patient is clinically stable, will discharge the patient home after dialysis today. Status at Discharge Functional status at discharge: independent ambulation Overall status at discharge: patient is back to baseline Time Spent with Patient Time attestation: Total time spent providing and/or coordinating discharge services: Patient was seen and examined at the time of the discharge Condition at discharge is stable Code status: Full code. Time spent preparing discharge summary, discharge medications, discussing discharge planning with classification case manager and patient is 35 minutes. Ti
== END 2020-04-30 12:30 | disposition home or self-care (01) ==
LOC: ANHED 23:35 → ANH3MEDSUR 23:41
PROVIDERS: Internal Medicine Nephrology; Admitting Provider Family Medicine; Emergency Provider Emergency Medicine; PCP Emergency Medicine; Visit Provider Family Medicine
DX: R10.9 Unspecified abdominal pain (principal); R30.0 Dysuria; N13.30 Unspecified hydronephrosis; K44.9 Diaphragmatic hernia without obstruction or gangrene; K76.0 Fatty (change of) liver, not elsewhere classified; I51.7 Cardiomegaly; K40.20 Bilateral inguinal hernia, without obstruction or gangrene, not specified as recurrent
CPT/HCPCS: 36415; 74018; 74176; 74177; 80053; 80069; 81001; 83690; 85025; 85027; 87086; 87088; 93005; 96360; 96361; 96374; 96376; 99285; A9270; G0378; G0379; J2270; J7030; Q9967